=== PATIENT | female | born 1955 | race Caucasian/White ===

== ENCOUNTER 2025-03-22 11:05 | Outpatient (AMB) | payer MEDICARE, SELFPAY ==
--- NOTE | 2025-03-22 11:08 | A.OFFPC_ITS ---
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 need review Intake Note: patient here for new patient visit c/o lyme disease need review Digital Data Analyst Required: No Is last menstrual period known: No Post menopausal: No Patient : No Allergies No Known Allergies Allergy (Verified 03/22/25 11:52) Medication List - Last Reconciled 03/22/25 by Darnell Robertson CNP No Known Home Meds Tobacco use date assessed: 03/22/25 Fall risk assessment: No Falls in past year Last assessed Fall Risk: 03/22/25 Dental Screening Dental Screen Date: 03/22/25 Did you have a dental visit in the last 12 months?: Yes Did you have a dental problem in the last 6 months where you did not have access to dental care?: No Was dental information given to patient?: Patient has dentist HPI HPI Comments History of Present Illness Details 69-year-old female presents to establish care. Not on prescription medications. She notes that her monitors her blood pressure at home with normal readings. She reports elevated blood pressure readings at doctors' visits. She does not recall taking antihypertensives. She notes that she was diagnosed with Lyme disease at [facility] 3- 4 years ago. She denies current symptoms of Lyme disease or exposure. Prior PCP? - [facility] Last office visit/CPE/labs - Spring 2023 Acute issue(s) - None Past Medical History - HTN, Lyme disease Surgical History - Bilat knee arthroscopy Family History - Mom: DM, HTN, breast cancer - Dad: DM Social History - Nonsmoker. Does not vape. Drinks 1 sherice t of mix drink every 1-1.5 wk. Denies recreational drug use - Has been making healthy dietary choice s. Does not exercise. Generally sleep well Health maintenance - Last eye exam was several years ago. R eferred to Ophthalmology for routine eye exam - Last dental visit a couple of years a go; encouraged to schedule an appointment with his dentist for routine dental care - Last tetanus vaccine was in 2004; rece ived Tdap vaccine today - She has never been vaccinated for anderson gles or pneumonia. Encouraged to get both vaccines from the local pharmacy - Has not been vaccinated for the flu season; declines vaccination - Last pap smear test was 10 years ago: negative. She no longer performs pap smear test - Last mammogram was 2 years ago. Mammog eddie ordered - She has never had a colonoscopy and de clines at this time. She usually gets Cologuard test and last test was 10 years ago. Cologuard ordered - She has never had a dexa scan. Dexa sc an ordered Specialists - None [facility] Medical History (Updated 03/22/25 @ 13:14 by Darnell Robertson CNP) High blood pressure Surgical History (Updated 03/22/25 @ 11:40 by PRIYA Zaragoza) [place] teeth extracted History of knee surgery Family History (Updated 03/22/25 @ 11:47 by PRIYA Zaragoza) Mother High blood pressure Diabetes Breast cancer in female Father Diabetes Social History (Updated 03/22/25 @ 11:23 by PRIYA Zaragoza) Housing: Condominium Patient Tobacco Use Status: Never used Tobacco e-Cigarette/Vaping Use: Never Used Second Hand Smoke Exposure: No Use of substances other than those prescribed or required for medical reasons: No Patient : No service: No Current occupational status: retired Current occupational exposures/hazards: Yes Cognitive needs: Yes (pt uses a cane) Hearing needs: No Vision needs: Yes Questionnaire PHQ-9 Over the last 2 weeks, how often have you been bothered by any of the following problems? 1. Little interest or pleasure in doing things: not at all 2. Feeling down, depressed, or hopeless: not at all 3. Trouble falling or staying asleep, or sleeping too much: several days 4. Feeling tired or having little energy: several days 5. Poor appetite or overeating: not at all 6. Feeling bad about yourself - or that you are a failure or have let yourself or your family down: not at all 7. Trouble concentrating on things, such as reading the newspaper or watching television: several days 8. Moving or speaking so slowly that other people could have noticed. Or the opposite - being so fidgety or restless that you have been moving around a lot more than usual: several days 9. Thoughts that you would be better off or of hurting yourself in some way: not at all Total score: 4 Depression Screening Interpretation: Negative Depression Screening Done: Yes 63903 - PHQ-9 Billing: Yes Source: Developed by Drs. Adam Garcia, Unique Long, Eric Patino and colleagues, with an educational jacob from [employer]. Thrive Questionnaire Date Thrive assessed: 03/22/25 I am a: Patient What is your living situation today?: I have a steady place to live Within the past 12 months, did the food you bought not last and you didn't have the money to get more?: Never true Within the past 12 months, did you worry whether your food would run out before you got money to buy more?: Never true Do you have trouble paying for medicines?: No Do you have trouble getting transportation to medical appointments?: No Do you have trouble paying your heating and electricity bill?: No Do you have trouble taking care of your child, family member or friend?: No Do you have trouble with day-to-day activities such as bathing, preparing meals, shopping, managing finances, etc.?: No Are you currently unemployed and looking for a job?: No Are you interested in more education?: No Please select the resources that you would like help with: None Currently or been in a relationship where the following occur: No concerns reported THRIVE Score: 0 AUDIT C Alcohol Use Questionnaire (AUDIT-C) 1. How often do you have a drink containing alcohol?: Monthly or less 2. How many drinks containing alcohol do you have on a typical day when you are drinking?: 1 or 2 3. How often do you have six or more drinks on one occasion?: Never Total Score: 1 Score Reviewed/Action Taken: Yes KAREN-7 AMB Questionnaire KAREN-7 Date KAREN - 7 assessed: 03/22/25 Feeling nervous, anxious, or on edge: 1 = Several days Not being able to stop or control worryin = Several days Worrying too much about different things: 1 = Several days Trouble relaxin = Several days Being so restless that it is hard to sit still: 0 = Not at all Becoming easily annoyed or irritable: 1 = Several days Feeling afraid as if something awful might happen: 0 = Not at all Total KAREN-7 score (0-4 normal; 5-9 mild; 10-14 moderate; 15-21 severe): 5 Source: Developed by Drs. Adam Garcia, Unique Long, Eric Patino and colleagues, with an educational jacob from [employer]. KAREN-7 Assessment Billing KAREN-7 Assessment Tool: KAREN-7 Assessment 90505 Review of Systems Const Details: Denies chills, Denies fatigue, Denies fever(s), Denies headache(s) and Denies weakness HEENT Denies change in vision, Denies dizziness, Denies headache(s), Denies hearing loss, Denies nasal congestion, Denies sinus pain, Denies sinus pressure and Denies sore throat Card Denies chest pain, Denies lightheadedness, Denies dyspnea and Denies other (palpitations) Resp Denies cough, Denies dyspnea and Denies wheezing GI Denies abdominal pain, Denies melena, Denies hematochezia, Denies change in bowel habits, Denies dyspepsia and Denies nausea Denies hematuria and Denies dysuria Musc Denies abnormal gait, Denies myalgias, Denies arthralgias, Denies numbness and Denies tingling Skin/Breast Denies rash, Denies unusual bruising and Denies wounds Neuro Denies abnormal gait, Denies dizziness, Denies headache(s), Denies memory loss, Denies numbness, Denies Sensory deficit (Neuro), Denies tingling and Denies weakness Psych Denies anxiety, Denies depression and Denies memory loss Endo Denies cold intolerance, Denies fatigue, Denies heat intolerance, Denies polydipsia and Denies polyuria Teddy/Lymph Denies easy bleeding and Denies easy bruising Aller/Immun Denies wheezing Physical exam (Primary Care) Vital Signs: Last Vital Signs Temp 97.4 F 03/22/25 11:24 Pulse 68 03/22/25 11:24 Resp 16 03/22/25 11:24 BP 170/80 H 03/22/25 11:59 Pulse Ox 98 03/22/25 11:24 Oxygen Delivery Method Room Air 03/22/25 11:24 BMI result Body Mass Index 27.5 Tobacco/Smoking Status: Tobacco use Status Tobacco use date assessed 03/22/25 03/22/25 11:23 Patient Tobacco Use Status Never used Tobacco 03/22/25 11:23 e-Cigarette/Vaping Use Never Used 03/22/25 11:23 PHQ-9: PHQ-9 Score PHQ-9: Total score 4 03/22/25 11:23 Depression Screening Interpretation: Negative Thrive Assessment: Date of Thrive Assessment Date Thrive assessed 03/22/25 03/22/25 11:11 Currently or been in a relationship where the following occur: No concerns reported Const Other: General: no acute distress, well developed, alert and awake Nutritional Appearance: well nourished Orientation/consciousness: patient oriented x3 HENMT Head: Yes normocephalic and Yes atraumatic Ears: hearing grossly normal bilaterally and TM's normal bilaterally General nose exam: Normal external nose present and Normal nares present Mouth: Normal oral and palatal mucosa present and moist mucous membranes Teeth and gingiva: dentition normal Throat: Yes oropharynx normal Eyes Pupils: Equal, round and reactive pupils present and Pupil accommodation reflex normal EOM: EOMs intact bilaterally Neck Neck: Yes normal visual inspection, Yes no lymphadenopathy and Yes trachea midline Thyroid: Thyroid normal Carotids: no bruits Lymphatic: no lymphadenopathy noted Chest Chest palpation & inspection: normal inspection of the chest Resp Effort & Inspection: normal respiratory effort Auscultation: clear to auscultation bilaterally Cardio Rate: regular rate Rhythm: regular rhythm Heart sounds: S1 normal heart sound present, S2 normal heart sound present, no gallops, no murmurs and no rubs Bruits: no abdominal aortic bruits and no carotid bruits GI Palpation (GI): No Abdominal aortic bruit present, Soft to palpation, nontender, No hepatosplenomegaly present and No Rebound tenderness present Auscultation: normal bowel sounds General: Yes no CVA tenderness Back/Spine/Pelvis Back: no CVA tenderness Cervical Spine: cervical ROM normal and No Cervical spine tenderness Thoracic/Lumbar Spine: thoraco-lumbar ROM normal, No pain with thoraco-lumbar ROM, No thoracic spinal tenderness and No lumbar spinal tenderness Skin General: warm and dry. Normal skin color. Normal skin turgor Lesions: no lesions Rashes: no rashes Trauma: no lacerations or abrasions Wounds: no wounds Nails: normal Neuro General: patient oriented x3, gait normal and CN's II-XI intact bilaterally Cranial nerves: Yes Equal, round and reactive pupils present Cognition (Neuro): normal cognition Gait exam (Neuro): Normal gait present Motor exam (neuro): 5/5 motor strength present throughout Sensory Exam: No Sensory deficit (Neuro) Deep tendon reflexes (DTR's): Right patellar reflex intensity grade: 2+ and Left patellar reflex intensity grade: 2+ Extrem General: Yes normal to inspection, No edema and No calf tenderness Psych Appearance: grossly normal Affect: normal affect Attitude: cooperative Thought process: Normal thought process present Immunizations Boostrix Tdap 2.5 Lf unit-8 mcg-5 Lf/0.5 mL intramuscular syringe Performing Provider: Darnell Robertson CNP Performing Location: [facility] [place] [facility] Administered by: Nina Alvarez RN on 03/22/25 12:24 Dose Route Admin Location Dispensed Lot Number Expiration Date NDC Culinary Specialist 0.5 mL IM Right Deltoid 0.5 mL [id number] 04/30/27 [id number] [employer] Total Dispensed Waste 0.5 mL 0 % VIS Given Date VIS Provided VIS Publication Date 03/22/25 Single Vaccine 21 Eligibility Eligibility Date Funding Source Not [facility] Eligible 03/22/25 Private Coding Level of Care Code New Pt Level 4 (51518) New Pt Prev Care >65yr (22885) Diagnoses Normal physical examination, routine Z00.00 High blood pressure I10 Eye exam, routine Z01.00 Colon cancer screening Z12.11 Breast cancer screening by mammogram Z12.31 Laboratory tests ordered as part of a complete physical exam (CPE) Z00.00 Additional Codes KAREN-7 Assessment Billing - KAREN-7 Assessment Tool: KAREN-7 Assessment 59224 ([id number]) PHQ-9 - 28958 - PHQ-9 Billing: Yes ([id number]) Assessment & Plan Assessment & Plan (1) Normal physical examination, routine: Code(s): Z00.00 - Encounter for general adult medical examination without abnormal findings Category: Medical Plan: No significant functional limitations noted. Continue current treatment regimen. Healthy diet and routine exercise encouraged. Perform lab work at next visit. Follow-up in 1 week for hypertension or sooner with symptoms or concerns. Verbalized understanding and agreed with the plan. (2) High blood pressure: Code(s): I10 - Essential (primary) hypertension Category: Medical Plan: Resting blood pressure is 170/80, above goal of less than 140/90. She reports normal blood pressure readings at home. She does not recall being on antihypertensive. Her blood pressure is elevated at doctors' visits. White coat syndrome is possible; however, her initial and resting systolic blood pressure readings are significantly elevated. Amlodipine 2.5 mg daily ordered; advised to take as prescribed. Instructed on the risks, benefits, and potential adverse reactions of the medication. Follow-up in 1 week. Verbalized understanding and agreed with plan. (3) Eye exam, routine: Code(s): Z01.00 - Encounter for examination of eyes and vision without abnormal findings Category: Medical Plan: Last eye exam was several years ago. Referred to Ophthalmology for routine eye exam. (4) Colon cancer screening: Code(s): Z12.11 - Encounter for screening for malignant neoplasm of colon Category: Medical Plan: She has never had a colonoscopy and declines at this time. She usually gets Cologuard test and last test was 10 years ago. Cologuard ordered. (5) Breast cancer screening by mammogram: Code(s): Z12.31 - Encounter for screening mammogram for malignant neoplasm of breast Category: Medical Plan: Last mammogram was 2 years ago. Mammogram ordered. (6) Laboratory tests ordered as part of a complete physical exam (CPE): Code(s): Z00.00 - Encounter for general adult medical examination without abnormal findings Category: Medical Plan: Fasting labs ordered as part of a complete physical exam. Advised to fast for at least 10 hours before getting labs drawn. May drink water Verbalized understanding and agreed with treatment plan. Orders: Orders TDaP Immunization Today Z23 - Encounter for immunization Complete Blood Count Auto Diff Today Z00.00 - Encounter for general adult medical examination without abnormal findings Microalbumin, Random (w Creat) Today Z00.00 - Encounter for general adult medical examination without abnormal findings TSH reflex Free T4 Today Z00.00 - Encounter for general adult medical examination without abnormal findings UA CC w/rflx Micro + Cult Today Z00.00 - Encounter for general adult medical examination without abnormal findings Vitamin D 25-OH Total Today Z00.00 - Encounter for general adult medical examination without abnormal findings Comprehensive [place]. Panel Fast Today Z00.00 - Encounter for general adult medical examination without abnormal findings Lipid Panel Today Z00.00 - Encounter for general adult medical examination without abnormal findings MM screening mammo BI Today Z12.31 - Encounter for screening mammogram for malignant neoplasm of breast XR DEXA axial skeleton Today M81.0 - Age-related osteoporosis without current pathological fracture Referrals Ophthalmology Referral Z01.00 - Encounter for examination of eyes and vision without abnormal findings Cologuard Test Z12.11 - Encounter for screening for malignant neoplasm of colon Medications: New amlodipine 2.5 mg PO DAILY 30 tabs 3RF 30 days
[2025-03-22 11:24] VITALS: BP 189/83; PULSE 68; RESP 16; TEMP 36.3; O2SAT 98; BMI 27.5
[2025-03-22 11:59] VITALS: BP 170/80
--- OUTSIDE RECORDS SUMMARY | 2025-03-22 13:31 | XMS_ITS | Clinical Summary ---
Author Organization [facility] Address [address] [place] [address] Phone Care Team Providers Care Candy Spreader Name Role Phone Ginger Lambert NP Primary Care Provider [phone] Surgical History Surgery Date Site/Laterality Comments KNEE SURGERY PROCEDURE: HISTORICAL KNEE SURGERY WISDOM TOOTH EXTRACTION N/A PROCEDURE: HISTORICAL WISDOM TEETH EXTRACTION Medical History Medical History Date Comments Gout DX:Gout Diverticulitis DX:Diverticuliti s Lyme disease DX:Lyme disease History of chicken pox DX:Histor y of chicken pox Family History Medical History Relation Name Comments Breast cancer Mother Breast cancer Sister Lung cancer Neg Hx Relation Name Status Comments Mother Sister Social History Tobacco Use Types Packs/Day Years Used Date Smoking Tobacco: Former Cigarettes 1 41 0 06/03/1969 - 06/03/2010 Smokeless Tobacco: Never Comments Unknown Sex and Gender Information Value Date Recorded Sex Assigned at Not on file Legal Sex Female 4:10 PM EST Gender Identity Not on file Sexual Orientation Not on file Obstetrics History Plan of Treatment Health Maintenance Due Date Last Done Comments Breast Cancer Screening 1955 Colorectal Cancer Screening: Colonoscopy 1955 DTaP,Tdap,and Td Vaccines (1 - Tdap) 1972 Pneumococcal Vaccine: 50+ Years (1 of 1 - PCV) 2003 Zoster Vaccines (1 of 2) 2003 Falls Risk Assessment 05/02/2022 Hepatitis C Screening 05/02/2022 Medicare Annual Wellness Visit 05/02/2022 Osteoporosis Screening (Bone Density Screening) 05/02/2022 Social Influencers of Health Screening 05/02/2022 Depression Screening 06/03/2024 COVID-19 Vaccine (2 - 2024-2 6 season) 2025 03/20/2021 Influenza Vaccine (#1) 2025 Lung Cancer Screening (Low Dose CT) 10/21/2025 10/21/2024, 10/17/2023, 10/17/2023 RSV Immunization Adult Patients (1 - 1-dose 75+ series) 2028 HIB Vaccines Aged Out No longer eligi ble based on patient's age to complete this topic HPV Vaccines Aged Out No longer eligi ble based on patient's age to complete this topic Hepatitis A Vaccines Aged Out No long er eligible based on patient's age to complete this topic Hepatitis B Vaccines Aged Out No long er eligible based on patient's age to complete this topic IPV Vaccines Aged Out No longer eligi ble based on patient's age to complete this topic MMR Vaccines Aged Out No longer eligi ble based on patient's age to complete this topic Meningococcal ACWY Vaccine Aged Out N o longer eligible based on patient's age to complete this topic Meningococcal B Vaccine Aged Out No l onger eligible based on patient's age to complete this topic RSV Immunization Patients Under 20 months Aged Out No longer eligible b ased on patient's age to complete this topic Varicella Vaccines Aged Out No longer eligible based on patient's age to complete this topic Procedures Procedure Name Priority Date/Time Associated Diagnosis Comments CT LUNG SCREENING Routine 10/21/2024 11: 41 AM EDT Encounter for screening for malignant neoplasm of respiratory organs Personal history of nicotine dependence from Last 3 Months or Most Recently Relevant to Health Maintenance Results * CT Lung Screening (10/21/2024 11:41 AM EDT) Anatomical Region Laterality Modality Chest Computed Tomogra phy 10/21/2024 3:37 PM EDT Impressions 10/21/2024 3:55 PM EDT No suspicious pulmonary nodules. Lung RADS 1, recommend low-dose screening chest CT in 12 months -------- FINAL REPORT -------- Dictated By: Baylee Arcos Dictated Date: 10/21/2024 15:37 ET Assigned Physician: Baylee Arcos Reviewed and Electronically Signed By: Baylee Arcos Signed Date: 10/21/2024 15:55 ET Workstation ID: [id number] Transcribed By: Self Edit Transcribed Date: 10/21/2024 15:37 ET Narrative 10/21/2024 3:55 PM EDT INDICATION: Quit smoking 15 years ago with 40 pack-year smoking history FINDINGS: Low-dose CT scan of the chest obtained as a lung cancer screening study. Scanner: [employer] Revolution frontier 128 slice VCT Dose reduction technique: ASIR (Adaptive statistical iterative reconstruction) and/or AEC (automated exposure control) Dose: total exam DLP 166.5 mGY per cm COMPARISON: Baseline CT lung screening study from October 17, 2023 Lung: Emphysematous changes are again noted without infiltrates or effusions. No discrete pulmonary nodules or masses. Lymph nodes: No thoracic lymphadenopathy. Mediastinum: Trachea and esophagus are within normal limits. Heart normal in size and shape without pericardial effusion. Left and right- sided coronary artery calcifications. 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 Bony structures: Within normal limits for the patient's age. Procedure Note Baylee Arcos MD - 10/21/2024 INDICATION: Quit smoking 15 years ago with 40 pack-year smoking history FINDINGS: Low-dose CT scan of the chest obtained as a lung cancerscreening study. Scanner: [employer] Revolution frontier 128 slice VCT Dose reduction technique: ASIR (Adaptive statistical iterativereconstruction) and/or AEC (automated exposure control) Dose: total exam DLP 166.5 mGY per cm COMPARISON: Baseline CT lung screening study from October 17, 2023 Lung: Emphysematous changes are again noted without infiltrates oreffusions. No discrete pulmonary nodules or masses. Lymph nodes: No thoracic lymphadenopathy. Mediastinum: Trachea and esophagus are within normal limits. Heart normal in size and shape without pericardial effusion. Left andright-sided coronary artery calcifications. 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 Bony structures: Within normal limits for the patient's age. IMPRESSION: No suspicious pulmonary nodules. Lung RADS 1, recommend low-dose screening chest CT in 12 months -------- FINAL REPORT -------- Dictated By: Baylee Arcos Dictated Date: 10/21/2024 15:37 ET Assigned Physician: Baylee Arcos Reviewed and Electronically Signed By: Baylee Arcos Signed Date: 10/21/2024 15:55 ET Workstation ID: [id number] Transcribed By: Self Edit Transcribed Date: 10/21/2024 15:37 ET Loida Dalton MD IMG CT PROCEDURES Final Result from Last 3 Months or Most Recently Relevant to Health Maintenance Insurance [employer] Care Teams Candy Spreader Relationship Specialty Start Date End Date Ginger Lambert NP [address] [place] [address] PCP - General 07/04/23
== END 2025-03-22 14:24 | disposition home or self-care (01) ==
LOC: HO.HMCFM 11:06
PROVIDERS: PCP Nurse Practitioner Family; Visit Provider Nurse Practitioner Family
DX: Z00.00 Encounter for general adult medical examination without abnormal findings (principal); I10 Essential (primary) hypertension; Z12.11 Encounter for screening for malignant neoplasm of colon; Z12.31 Encounter for screening mammogram for malignant neoplasm of breast; Z23 Encounter for immunization

== ENCOUNTER → 2025-03-22 11:05 | Outpatient (BNVA) | payer MEDICARE, SELFPAY | PROVIDERS: PCP Nurse Practitioner Family; Visit Provider Nurse Practitioner Family | DX: Z00.00 Encounter for general adult medical examination without abnormal findings (principal); I10 Essential (primary) hypertension; M81.0 Age-related osteoporosis without current pathological fracture; Z23 Encounter for immunization | CPT/HCPCS: 90471; 90715; 96127; 99202; 99387 ==

== ENCOUNTER 2025-03-29 10:45 | Outpatient (REF) | payer MEDICARE, SELFPAY ==
--- OUTSIDE RECORDS SUMMARY | 2025-03-29 13:12 | XMS_ITS | Clinical Summary ---
Author Organization [facility] Address [address] [place] [address] Phone Care Team Providers Care Plastic Tile Setter Name Role Phone Ginger Lambert NP Primary Care Provider [phone] Surgical History Surgery Date Site/Laterality Comments KNEE [...] Signed Date: 10/21/2024 15:55 ET Workstation ID: [id number] Transcribed By: Self Edit Transcribed Date: 10/21/2024 15:37 ET Narrative 10/21/2024 3:55 PM EDT INDICATION: Quit smoking 15 years ago with 40 pack-year smoking history FINDINGS: Low-dose CT scan of the chest obtained as a lung cancer screening study. Scanner: [employer] Revolution frontier 128 slice VCT Dose reduction [...] obtained as a lung cancerscreening study. Scanner: [employer] Revolution frontier 128 slice VCT Dose reduction [...] Signed Date: 10/21/2024 15:55 ET Workstation ID: [id number] Transcribed By: Self Edit Transcribed Date: 10/21/2024 15:37 ET Loida Dalton MD IMG CT PROCEDURES Final Result from Last 3 Months or Most Recently Relevant to Health Maintenance Insurance [employer] [place] [employer] Care Teams Plastic Tile Setter Relationship Specialty Start Date End Date Ginger Lambert NP [address] [place] [address] PCP - General 07/04/23
[2025-03-29 14:12] LABS: MANUAL DIFF FLAG NO
[2025-03-29 14:23] LABS: Hematocrit 43.8 % (37.0-47.0); Hemoglobin 13.8 g/dl (12.0-16.0); Imm Gran Abs Auto 0.02 X10*3/uL (0.00-0.03); Imm Gran Pct Auto 0.3 % (0.0-0.4); Lymphocytes Absolute Auto 1.2 X10*3/uL (1.2-4.9); Mean Corpuscular HGB Conc 31.5 g/dl (31.0-35.0); Mean Corpuscular Hemoglobin 28.5 pg (27.0-33.0); Mean Corpuscular Volume 90.3 fL (80.0-98.0); NRBC Abs Auto 0.000 X10*3/uL (0.0-0.012); NRBC Pct Auto 0.0 /100WBC (0.0-0.2); Platelet Count 342 X10*3/uL (160-400); Red Blood Count 4.85 X10*6/uL (4.20-5.50); White Blood Count 6.8 X10*3/uL (4.8-10.8)
[2025-03-29 14:46] LABS: Alanine Aminotransferase 8 U/L (0-31); Albumin Level 4.3 g/dL (3.5-5.0); Alkaline Phosphatase 92 U/L (39-117); Anion Gap 14 (12-20); Aspartate Amino Transferase 18 U/L (5-31); Blood Urea Nitrogen 15 mg/dL (9-16); Calcium 9.7 mg/dL (8.4-10.2); Carbon Dioxide 25 mmol/L (22-29); Chloride 108 mmol/L (96-108); Cholesterol 178 mg/dL (<200); Estimated Glomerular Filt Rate 48; HDL Cholesterol 50 mg/dL (>40); Potassium 4.4 mmol/L (3.3-5.1); Sodium 143 mmol/L (135-145); Total Protein 8.4 g/dL (6.5-8.0); Triglycerides 118 mg/dL (<150)
[2025-03-29 15:58] LABS: Free T4 (Free Thyroxine) 0.95 ng/dL (0.71-1.85)
== END 2025-03-29 10:46 | disposition home or self-care (01) ==
LOC: HO.WFDLDS 10:45
PROVIDERS: Visit Provider Nurse Practitioner Family
DX: Z00.00 Encounter for general adult medical examination without abnormal findings (principal); Z13.6 Encounter for screening for cardiovascular disorders; Z13.29 Encounter for screening for other suspected endocrine disorder; Z13.0 Encounter for screening for diseases of the blood and blood-forming organs and certain disorders involving the immune mechanism
CPT/HCPCS: 36415; 80053; 80061; 82306; 84439; 84443; 85025; 87086

== ENCOUNTER 2025-03-30 13:16 | Outpatient (AMB) | payer MEDICARE, SELFPAY ==
--- NOTE | 2025-03-30 13:24 | MHC.PC.OV ---
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: No Is last menstrual period known: No Post menopausal: No Patient : No Allergies No Known Allergies Allergy (Verified 03/30/25 13:35) Medication List - Last Reconciled 03/30/25 by Darnell Robertson CNP No Known Home Meds Tobacco use date assessed: 03/30/25 Fall risk assessment: No Falls in past year Last assessed Fall Risk: 03/30/25 Dental Screening Dental Screen Date: 03/30/25 Did you have a dental visit in the last 12 months?: Yes Did you have a dental problem in the last 6 months where you did not have access to dental care?: No Was dental information given to patient?: Patient has dentist HPI HPI Comments History of Present Illness Details 69-year-old female presents for hypertension and recent labs review follow-up. Her blood pressure was elevated at her last visit 8 days ago. She was prescribed amlodipine 2.5 mg daily. However, she did not start the medication. She states that she is unaware that the medication was ordered. She offers no complaints and denies acute symptoms at this time. [facility] Medical History (Updated 03/30/25 @ 13:37 by Darnell Robertson CNP) High blood pressure Surgical History (Updated 03/22/25 @ 11:40 by PRIYA Zaragoza) [place] teeth extracted History of knee surgery Family History (Updated 03/22/25 @ 11:47 by PRIYA Zaragoza) Mother High blood pressure Diabetes Breast cancer in female Father Diabetes Social History (Updated 03/22/25 @ 11:23 by PRIYA Zaragoza) Housing: Condominium Patient Tobacco Use Status: Never used Tobacco e-Cigarette/Vaping Use: Never Used Second Hand Smoke Exposure: No Patient : No service: No Current occupational status: retired Current occupational exposures/hazards: Yes Cognitive needs: Yes (pt uses a cane) Hearing needs: No Vision needs: Yes Questionnaire Thrive Questionnaire Date Thrive assessed: 03/22/25 I am a: Patient What is your living situation today?: I have a steady place to live Within the past 12 months, did the food you bought not last and you didn't have the money to get more?: Never true Within the past 12 months, did you worry whether your food would run out before you got money to buy more?: Never true Do you have trouble paying for medicines?: No Do you have trouble getting transportation to medical appointments?: No Do you have trouble paying your heating and electricity bill?: No Do you have trouble taking care of your child, family member or friend?: No Do you have trouble with day-to-day activities such as bathing, preparing meals, shopping, managing finances, etc.?: No Are you currently unemployed and looking for a job?: No Are you interested in more education?: No Please select the resources that you would like help with: None Currently or been in a relationship where the following occur: No concerns reported THRIVE Score: 0 KAREN-7 AMB Questionnaire KAREN-7 Date KAREN - 7 assessed: 03/22/25 Source: Developed by Drs. Adam Garcia, Unique Long, Eric Patino and colleagues, with an educational jacob from [employer]. Review of Systems Const Details: Const Denies chills, Denies fatigue, Denies fever(s), Denies headache(s) and Denies weakness ENT Denies dizziness and Denies headache(s) Card Denies chest pain, Denies lightheadedness, Denies dyspnea and Denies other (Palpitations) Resp Denies cough, Denies dyspnea, Denies wheezing and Denies other ( shortness of breath) GI Denies abdominal pain, Denies melena, Denies hematochezia, Denies change in bowel habits, Denies dyspepsia and Denies nausea Denies hematuria and Denies dysuria Musc Denies abnormal gait, Denies myalgias, Denies arthralgias, Denies numbness and Denies tingling Skin/Breast Denies rash, Denies unusual bruising and Denies wounds Neuro Denies abnormal gait, Denies dizziness, Denies headache(s), Denies memory loss, Denies numbness, Denies Sensory deficit (Neuro), Denies tingling and Denies weakness Psych Denies anxiety, Denies depression, Denies memory loss Endo Denies cold intolerance, Denies fatigue, Denies heat intolerance, Denies polydipsia and Denies polyuria Aller/Immun Denies wheezing Physical exam (Primary Care) Vital Signs: Last Vital Signs Temp 97.3 F 03/30/25 13:29 Pulse 78 03/30/25 13:29 Resp 16 03/30/25 13:29 BP 182/86 H 03/30/25 13:29 Pulse Ox 100 03/30/25 13:29 Oxygen Delivery Method Room Air 03/30/25 13:29 BMI result Body Mass Index 27.3 Tobacco/Smoking Status: Tobacco use Status Tobacco use date assessed 03/30/25 03/30/25 13:32 Patient Tobacco Use Status Never used Tobacco 03/30/25 13:25 e-Cigarette/Vaping Use Never Used 03/30/25 13:25 Thrive Assessment: Date of Thrive Assessment Date Thrive assessed 03/22/25 03/30/25 13:25 Currently or been in a relationship where the following occur: No concerns reported Const Other: General: no acute distress and well developed Nutritional Appearance: well nourished Orientation/consciousness: patient oriented x3 HENMT Head: Yes normocephalic and Yes atraumatic Eyes General: appearance normal, both eyes and all related structures Pupils: Equal, round and reactive pupils present EOM: EOMs intact bilaterally Resp Effort & Inspection: normal respiratory effort Auscultation: clear to auscultation bilaterally Cardio Rate: regular rate Rhythm: regular rhythm Heart sounds: S1 normal heart sound present, S2 normal heart sound present, no gallops, no murmurs and no rubs GI Palpation (GI): No Abdominal aortic bruit present, Soft to palpation, nontender, No hepatosplenomegaly present and No Rebound tenderness present Auscultation: normal bowel sounds General: Yes no CVA tenderness Back/Spine/Pelvis Back: no CVA tenderness Cervical Spine: cervical ROM normal and No Cervical spine tenderness Thoracic/Lumbar Spine: thoraco-lumbar ROM normal, No pain with thoraco-lumbar ROM, No thoracic spinal tenderness and No lumbar spinal tenderness Extrem General: Yes normal to inspection, No edema and No calf tenderness Skin General: warm and dry. Normal skin color. Normal skin turgor Neuro General: patient oriented x3, gait normal and no focal neuro deficit Cranial nerves: Yes Equal, round and reactive pupils present Cognition (Neuro): normal cognition Gait exam (Neuro): Normal gait present Sensory Exam: No Sensory deficit (Neuro) Psych Appearance: grossly normal Affect: normal affect Attitude: cooperative Thought process: Normal thought process present Coding Level of Care Code Est Pt Level 4 (86817) Diagnoses High blood pressure I10 Vitamin D deficiency E55.9 Elevated TSH R79.89 Elevated LDL cholesterol level E78.00 Assessment & Plan Assessment & Plan (1) High blood pressure: Code(s): I10 - Essential (primary) hypertension Category: Medical Plan: Resting blood pressure is 160/80, above goal of less than 140/90. Amlodipine 2.5 mg daily reordered; advised to take as prescribed. Instructed on the risks, benefits, and potential adverse reactions of the medication. Low-sodium diet encouraged. Follow-up in 1 week or sooner with symptoms or concerns. Verbalized understanding and agreed with the plan. (2) Vitamin D deficiency: Code(s): E55.9 - Vitamin D deficiency, unspecified Category: Medical Plan: Recent vitamin-D level is low, 25.6. Vitamin D3 1000 units daily ordered; advised to take as prescribed. Will recheck vitamin-D level in 6 weeks. Verbalized understanding and agreed with the plan. (3) Elevated TSH: Code(s): R79.89 - Other specified abnormal findings of blood chemistry Category: Medical Plan: Recent TSH level is slightly elevated, 5.23, free T4 is normal. No symptoms of hypothyroidism. Will recheck TSH/T4 and make changes as needed. Verbalized understanding and agreed with the plan. (4) Elevated LDL cholesterol level: Code(s): E78.00 - Pure hypercholesterolemia, unspecified Category: Medical Plan: Recent LDL level is slightly elevated, 105, triglycerides, total cholesterol, and HDL levels are normal. Advised to limit foods high in saturated fat and avoid foods high in trans fat. Routine exercise encouraged. Will monitor lipid panel level annually. Verbalized understanding and agreed with the plan. Orders: Orders TSH reflex Free T4 Today R79.89 - Other specified abnormal findings of blood chemistry Vitamin D 25-OH Total 6 Weeks E55.9 - Vitamin D deficiency, unspecified Medications: New cholecalciferol (vitamin D3) 25 mcg PO DAILY 90 tabs 3RF 90 days Refilled amlodipine 2.5 mg PO DAILY 30 tabs 3RF 30 days
[2025-03-30 13:29] VITALS: BP 182/86; PULSE 78; RESP 16; TEMP 36.3; O2SAT 100; BMI 27.3
[2025-03-30 13:54] VITALS: BP 160/80
--- OUTSIDE RECORDS SUMMARY | 2025-03-30 17:02 | XMS_ITS | Clinical Summary ---
Author Organization [facility] Address [address] [place] [address] Phone Care Team Providers Care Mail Processing Clerk Name Role Phone Ginger Lambert NP Primary Care Provider [phone] Surgical History Surgery Date Site/Laterality Comments KNEE [...] Signed Date: 10/21/2024 15:55 ET Workstation ID: [id number] Transcribed By: Self Edit Transcribed Date: 10/21/2024 15:37 ET Narrative 10/21/2024 3:55 PM EDT INDICATION: Quit smoking 15 years ago with 40 pack-year smoking history FINDINGS: Low-dose CT scan of the chest obtained as a lung cancer screening study. Scanner: [employer] frontier 128 slice VCT Dose reduction [...] obtained as a lung cancerscreening study. Scanner: [employer] frontier 128 slice VCT Dose reduction [...] Signed Date: 10/21/2024 15:55 ET Workstation ID: [id number] Transcribed By: Self Edit Transcribed Date: 10/21/2024 15:37 ET Loida Dalton MD IMG CT PROCEDURES Final Result from Last 3 Months or Most Recently Relevant to Health Maintenance Insurance [employer] Care Teams Mail Processing Clerk Relationship Specialty Start Date End Date Ginger Lambert NP [address] [place] [address] PCP - General 07/04/23
== END 2025-03-30 14:08 | disposition home or self-care (01) ==
LOC: HO.HMCFM 13:18
PROVIDERS: PCP Nurse Practitioner Family; Visit Provider Nurse Practitioner Family
DX: I10 Essential (primary) hypertension (principal); E55.9 Vitamin D deficiency, unspecified; R79.89 Other specified abnormal findings of blood chemistry; E78.00 Pure hypercholesterolemia, unspecified

== ENCOUNTER 2025-03-30 13:16 | Outpatient (REF) | payer MEDICARE, SELFPAY ==
[2025-03-30 18:56] LABS: Microalbum/Creatinine Ratio Ur 20.8 ug/mg cr (<30)
[2025-03-30 19:53] LABS: Free T4 (Free Thyroxine) 0.96 ng/dL (0.71-1.85)
[2025-03-30 19:59] LABS: Appearance Urine Cloudy; Glucose Urine UA Negative (Negative); PH 6.0 (5.0-9.0); Specific Gravity - Urine 1.010 (1.005-1.025); UMIC TRIGGER UACC YES
[2025-03-30 20:04] LABS: UACC Culture Trigger YES
== END 2025-03-30 13:17 | disposition home or self-care (01) ==
LOC: HO.WFDLDS 13:16
PROVIDERS: PCP Nurse Practitioner Family; Visit Provider Nurse Practitioner Family
DX: I10 Essential (primary) hypertension (principal); E55.9 Vitamin D deficiency, unspecified; E78.00 Pure hypercholesterolemia, unspecified; Z79.899 Other long term (current) drug therapy
CPT/HCPCS: 36415; 81001; 82043; 82570; 84439; 84443; 87086; 87088; 87186; 99212

== ENCOUNTER 2025-04-06 12:48 | Outpatient (AMB) | payer MEDICARE, SELFPAY ==
--- NOTE | 2025-04-06 12:59 | A.OFFPC_ITS ---
Vital Signs 04/06/25 13:04 04/06/25 13:27 Height 5 ft 2 in Weight 145 lb 2 oz BMI 26.5 BP 168/79 H 150/60 H Blood Pressure Location Rt brachial Rt brachial Position Sitting Sitting Respiration 16 Pulse 75 Pulse Source Pulse Oximeter Temp 97.3 F Temp Source Oral Pulse Oximetry (%) 98 Oxygen Delivery Method Room Air Intake Visit Reasons: 1wks htn Intake Note: patient here for 1 wk follow up on HTN Assisted Living Nursing Director Required: No Is last menstrual period known: No Post menopausal: No Patient : No Allergies No Known Allergies Allergy (Verified 04/06/25 13:24) Medication List - Last Reconciled 04/06/25 by Darnell Robertson CNP amlodipine 2.5 mg PO DAILY 30 days cholecalciferol (vitamin D3) 25 mcg PO DAILY 90 days nitrofurantoin monohyd/m-cryst 100 mg (Macrobid) 100 mg PO Q12H 5 days Tobacco use date assessed: 04/06/25 Fall risk assessment: No Falls in past year Last assessed Fall Risk: 04/06/25 Dental Screening Dental Screen Date: 04/06/25 Did you have a dental visit in the last 12 months?: No Did you have a dental problem in the last 6 months where you did not have access to dental care?: No Was dental information given to patient?: Patient has dentist HPI HPI Comments History of Present Illness Details 69-year-old female presents for hyperten mauri follow-up. She admits to taking amlodipine 2.5 mg daily without adverse reactions. She notes that she has a blood pressure monitor at home and her usually helps with checking her blood pressure. She does not recall her last blood pressure readings. No acute symptoms at this time. [facility] Medical History (Updated 03/30/25 @ 13:37 by Darnell Robertson CNP) High blood pressure Surgical History (Updated 03/22/25 @ 11:40 by PRIYA Zaragoza) [place] teeth extracted History of knee surgery Family History (Updated 03/22/25 @ 11:47 by PRIYA Zaragoza) Mother High blood pressure Diabetes Breast cancer in female Father Diabetes Social History (Updated 03/22/25 @ 11:23 by PRIYA Zaragoza) Housing: Condominium Patient Tobacco Use Status: Never used Tobacco e-Cigarette/Vaping Use: Never Used Second Hand Smoke Exposure: No service: No Current occupational status: retired Current occupational exposures/hazards: Yes Cognitive needs: Yes (pt uses a cane) Hearing needs: No Vision needs: Yes Questionnaire Thrive Questionnaire Date Thrive assessed: 03/22/25 KAREN-7 AMB Questionnaire KAREN-7 Date KAREN - 7 assessed: 03/22/25 Source: Developed by Drs. Adam Garcia, Unique Long, Eric Patino and colleagues, with an educational jacob from [employer]. Review of Systems Const Details: Const Denies chills, Denies fatigue, Denies fever(s), Denies headache(s) and Denies weakness ENT Denies dizziness and Denies headache(s) Card Denies chest pain, Denies lightheadedness, Denies dyspnea and Denies other (Palpitations) Resp Denies cough, Denies dyspnea, Denies wheezing and Denies other ( shortness of breath) GI Denies abdominal pain, Denies melena, Denies hematochezia, Denies change in bowel habits, Denies dyspepsia and Denies nausea Denies hematuria and Denies dysuria Musc Denies abnormal gait, Denies myalgias, Denies arthralgias, Denies numbness and Denies tingling Skin/Breast Denies rash, Denies unusual bruising and Denies wounds Neuro Denies abnormal gait, Denies dizziness, Denies headache(s), Denies memory loss, Denies numbness, Denies Sensory deficit (Neuro), Denies tingling and Denies weak ness Psych Denies anxiety, Denies depression, Denies memory loss Endo Denies cold intolerance, Denies fatigue, Denies heat intolerance, Denies polydip michael and Denies polyuria Aller/Immun Denies wheezing Physical exam (Primary Care) Tobacco/Smoking Status: Tobacco use Status Tobacco use date assessed 03/30/25 04/06/25 13:00 Patient Tobacco Use Status Never used Tobacco 04/06/25 13:00 e-Cigarette/Vaping Use Never Used 04/06/25 13:00 Thrive Assessment: Date of Thrive Assessment Date Thrive assessed 03/22/25 04/06/25 13:00 Const Other: General: no acute distress and well developed Nutritional Appearance: well nourished Orientation/consciousness: patient oriented x3 HENMT Head: Yes normocephalic and Yes atraumatic Eyes General: appearance normal, both eyes and all related structures Pupils: Equal, round and reactive pupils present EOM: EOMs intact bilaterally Resp Effort & Inspection: normal respiratory effort Auscultation: clear to auscultation bilaterally Cardio Rate: regular rate Rhythm: regular rhythm Heart sounds: S1 normal heart sound present, S2 normal heart sound present, no gallops, no murmurs and no rubs GI Palpation (GI): No Abdominal aortic bruit present, Soft to palpation, nontender, No hepatosplenomegaly present and No Rebound tenderness present Auscultation: normal bowel sounds General: Yes no CVA tenderness Back/Spine/Pelvis Back: no CVA tenderness Cervical Spine: cervical ROM normal and No Cervical spine tenderness Thoracic/Lumbar Spine: thoraco-lumbar ROM normal, No pain with thoraco-lumbar ROM, No thoracic spinal tenderness and No lumbar spinal tenderness Extrem General: Yes normal to inspection, No edema and No calf tenderness Skin General: warm and dry. Normal skin color. Normal skin turgor Neuro General: patient oriented x3, gait normal and no focal neuro deficit Cranial nerves: Yes Equal, round and reactive pupils present Cognition (Neuro): normal cognition Gait exam (Neuro): Normal gait present Sensory Exam: No Sensory deficit (Neuro) Psych Appearance: grossly normal Affect: normal affect Attitude: cooperative Thought process: Normal thought process present Coding Level of Care Code Est Pt Level 3 (55398) Diagnoses High blood pressure I10 Elevated TSH R79.89 Assessment & Plan Assessment & Plan (1) High blood pressure: Code(s): I10 - Essential (primary) hypertension Category: Medical Plan: Resting blood pressure is 150/60, above goal of less than 140/90. Amlodipine increased to 5 mg daily; advised to take as prescribed. Low-sodium diet encouraged. Encouraged to check blood pressure 3 times weekly, record readings, and bring to next appointment. Notify PCP of blood pressure readings persistently above 150/60. Follow-up in 2 weeks or sooner with worsening or new symptoms. Verbalized understanding and agreed with treatment plan. (2) Elevated TSH: Code(s): R79.89 - Other specified abnormal findings of blood chemistry Category: Medical Plan: Repeat TSH is slightly elevated, 4.17, free T4 is normal. Asymptomatic. Will monitor TSH/T4 annually or sooner if clinically indicated. Verbalized understanding and agreed with the plan. Medications: New amlodipine 5 mg PO DAILY 30 tabs 3RF 30 days Discontinued amlodipine Discontinued Reason: Doctor's Order 2.5 mg PO DAILY 30 days 30 tabs 3RF
[2025-04-06 13:04] VITALS: BP 168/79; PULSE 75; RESP 16; TEMP 36.3; O2SAT 98; BMI 26.5
[2025-04-06 13:27] VITALS: BP 150/60
--- OUTSIDE RECORDS SUMMARY | 2025-04-06 15:27 | XMS_ITS | Clinical Summary ---
Author Organization [facility] Address [address] [place] [address] Phone Care Team Providers Care Deep Fat Fry Cook Name Role Phone Ginger Lambert NP Primary Care Provider [phone] Surgical History Surgery Date Site/Laterality Comments KNEE [...] Signed Date: 10/21/2024 15:55 ET Workstation ID: [id number] Transcribed By: Self Edit Transcribed Date: 10/21/2024 15:37 ET Narrative 10/21/2024 3:55 PM EDT INDICATION: Quit smoking 15 years ago with 40 pack-year smoking history FINDINGS: Low-dose CT scan of the chest obtained as a lung cancer screening study. Scanner: [employer] frontier 128 slice VCT Dose reduction [...] obtained as a lung cancerscreening study. Scanner: [employer] frontier 128 slice VCT Dose reduction [...] Signed Date: 10/21/2024 15:55 ET Workstation ID: [id number] Transcribed By: Self Edit Transcribed Date: 10/21/2024 15:37 ET Loida Dalton MD IMG CT PROCEDURES Final Result from Last 3 Months or Most Recently Relevant to Health Maintenance Insurance [employer] Care Teams Deep Fat Fry Cook Relationship Specialty Start Date End Date Ginger Lambert NP [address] [place] [address] PCP - General 07/04/23
== END 2025-04-06 13:33 | disposition home or self-care (01) ==
LOC: HO.HMCFM 12:48
PROVIDERS: PCP Nurse Practitioner Family; Visit Provider Nurse Practitioner Family
DX: I10 Essential (primary) hypertension (principal); R79.89 Other specified abnormal findings of blood chemistry

== ENCOUNTER → 2025-04-06 12:48 | Outpatient (BNVA) | payer MEDICARE, SELFPAY | PROVIDERS: PCP Nurse Practitioner Family; Visit Provider Nurse Practitioner Family | DX: I10 Essential (primary) hypertension (principal); R79.89 Other specified abnormal findings of blood chemistry; Z79.899 Other long term (current) drug therapy | CPT/HCPCS: 99212 ==